=== PATIENT | female | born 1985 | race Caucasian/White ===

== ENCOUNTER 2018-04-23 07:18 | Emergency (ER) | payer MEDICAID ==
[~2018-04-23] VITALS: Ht 157.5 cm; Wt 63.6 kg
[2018-04-23 07:34] VITALS: BP 134/74
== END 2018-04-23 09:21 | disposition home or self-care (01) ==
LOC: ER 07:19
DX: K42.9 Umbilical hernia without obstruction or gangrene (principal); F15.10 Other stimulant abuse, uncomplicated
CPT/HCPCS: 99281

== ENCOUNTER 2022-09-25 21:13 | Emergency (ER) | payer MEDICAID ==
[~2022-09-25] VITALS: Ht 160 cm; Wt 65.9 kg
[2022-09-25 21:49] VITALS: BP 119/75
[2022-09-25] MEDS ORDERED: METR-159 PO (23:54)
[2022-09-25] MEDS ORDERED: metroNIDAZOLE 500mg tablet PO ONE (23:55)
[2022-09-25 23:59] LABS: URINE HCG NEGATIVE (NEG)
== END 2022-09-26 00:14 | disposition home or self-care (01) ==
LOC: ER 21:14
DX: N89.8 Other specified noninflammatory disorders of vagina (principal); F15.90 Other stimulant use, unspecified, uncomplicated
CPT/HCPCS: 36415; 81025; 87210; 87491; 99284

== ENCOUNTER 2022-11-11 23:12 | Emergency (ER) | payer MEDICAID ==
[~2022-11-11] VITALS: Ht 160 cm; Wt 62.2 kg
[2022-11-11 23:36] VITALS: BP 105/63; PULSE 89; RESP 14; TEMP 97.8; O2SAT 98
[2022-11-12 00:30] LABS: BILIRUBIN,URINE NEGATIVE (Neg); CLARITY,URINE SLIGHTLY CLOUDY (Clear); COLOR,URINE YELLOW (Yellow); GLUCOSE, URINE NEGATIVE (Neg); KETONES,URINE TRACE mg/dl (Neg); LEUKOCYTE ESTERASE ,URINE NEGATIVE (Neg); NITRITES, URINE NEGATIVE (Neg); OCCULT BLOOD,URINE NEGATIVE (Neg); PH,URINE 6.5 (4.8-8.0); PROTEIN,URINE NEGATIVE (Neg); UA COLLECTION TYPE CLN CATCH MIDSTREAM; UROBILINOGEN,URINE 0.2 E.U/dL (0.2-1.0)
[2022-11-12 00:39] LABS: BACTERIA,URINE 1+ /HPF (Neg)
[2022-11-12 00:40] LABS: SQUAMOUS EPITHELIAL CELL,UR MODERATE /LPF (FEW); TRANSITIONAL EPI CELLS,URINE FEW /HPF
[2022-11-12] MEDS ORDERED: METR-159 PO (04:32)
[2022-11-14 14:31] LABS: CHLAMYDIA TRACHOMATIS, NAA Negative (Negative)
== END 2022-11-12 05:06 | disposition home or self-care (01) ==
LOC: ER 23:12
DX: N76.0 Acute vaginitis (principal); F15.10 Other stimulant abuse, uncomplicated
CPT/HCPCS: 36415; 81001; 81003; 87088; 87210; 87491; 99283

== ENCOUNTER 2022-11-16 14:00 | Emergency (ER) | payer MEDICAID ==
[~2022-11-16] VITALS: Ht 160 cm; Wt 65.2 kg
[~2022-11-16 14:00] MED LIST: METR-159 PO
[2022-11-16 14:04] VITALS: BP 115/79; PULSE 75; RESP 16; TEMP 97.8; O2SAT 100
[2022-11-16] MEDS ORDERED: CefTRIAXone 500MG IM Kit w/LIDOcaine IM ONE (17:30)
[2022-11-16] MEDS ORDERED: DOXY150T5 PO (17:33)
== END 2022-11-16 17:47 | disposition home or self-care (01) ==
LOC: ER 14:01
DX: A54.9 Gonococcal infection, unspecified (principal); F15.90 Other stimulant use, unspecified, uncomplicated
CPT/HCPCS: 96372; 99283; J0696

== ENCOUNTER 2023-12-01 16:25 | Emergency (ER) | payer MEDICAID ==
[~2023-12-01] VITALS: Ht 157.5 cm; Wt 63.6 kg
[2023-12-01 16:27] VITALS: BP 111/71; PULSE 101; RESP 16; TEMP 97.5; O2SAT 99
[2023-12-01 18:26] LABS: URINE HCG NEGATIVE (NEG)
[2023-12-01 18:29] LABS: BILIRUBIN,URINE NEGATIVE (Neg); CLARITY,URINE CLOUDY (Clear); COLOR,URINE YELLOW (Yellow); GLUCOSE, URINE NEGATIVE (Neg); KETONES,URINE TRACE mg/dl (Neg); LEUKOCYTE ESTERASE ,URINE MODERATE (Neg); NITRITES, URINE POSITIVE (Neg); OCCULT BLOOD,URINE SMALL (Neg); PROTEIN,URINE 30 mg/dl (Neg); UROBILINOGEN,URINE 0.2 E.U/dL (0.2-1.0)
[2023-12-01 18:39] LABS: UA COLLECTION TYPE NON-SPECIFIED
[2023-12-01 18:40] LABS: SQUAMOUS EPITHELIAL CELL,UR NONE SEEN /LPF (FEW); WBC,URINE TNTC /HPF (0-4)
[2023-12-01 18:41] LABS: BACTERIA,URINE 4+ /HPF (Neg); RBC,URINE 0-2 /HPF (0-2)
[2023-12-01 19:34] LABS: SYPHILIS SCREENING TEST POC NEGATIVE (Negative)
[2023-12-01] MEDS ORDERED: CEPH-585 PO (19:49)
== END 2023-12-01 20:01 | disposition home or self-care (01) ==
LOC: ER 16:26
DX: N39.0 Urinary tract infection, site not specified (principal); F15.90 Other stimulant use, unspecified, uncomplicated
CPT/HCPCS: 36415; 81001; 81025; 87077; 87088; 87186; 99283